=== PATIENT | female | born 1970 | race Caucasian/White ===

== ENCOUNTER 2024-07-11 08:23 | Emergency (ER) | payer MEDICARE, BC | END 2024-07-11 08:35 | disposition home or self-care (01) | LOC: MADERS 08:23 | DX: S06.0X0A Concussion without loss of consciousness, initial encounter (principal); G89.4 Chronic pain syndrome; I10 Essential (primary) hypertension; E03.9 Hypothyroidism, unspecified; W19.XXXA Unspecified fall, initial encounter | CPT/HCPCS: 70450 ==

== ENCOUNTER 2025-05-29 10:21 | Emergency (ER) | payer MEDICARE | END 2025-05-29 12:07 | disposition home or self-care (01) | LOC: MADERS 10:21 | DX: S90.821A Blister (nonthermal), right foot, initial encounter (principal); L84 Corns and callosities; I10 Essential (primary) hypertension; E03.9 Hypothyroidism, unspecified; K21.9 Gastro-esophageal reflux disease without esophagitis; E78.5 Hyperlipidemia, unspecified; Z79.899 Other long term (current) drug therapy; X58.XXXA Exposure to other specified factors, initial encounter | CPT/HCPCS: 99283 ==